=== PATIENT | female | born 1980 | race Caucasian/White ===

== ENCOUNTER 2020-03-09 20:13 | Emergency (ER) | payer OTHER, SELFPAY ==
[2020-03-09 20:18] VITALS: BP 164/74; PULSE 88; RESP 20; TEMP 36.6; O2SAT 98
--- NOTE | 2020-03-09 20:29 | ED_ITS ---
HPI - Allergic Reaction General Chief complaint: Allergic Reaction Stated complaint: hives all over Time Seen by Provider: 03/09/20 20:20 Source: patient Mode of arrival: Ambulatory Limitations: no limitations History of Present Illness HPI narrative: 39-year-old woman with medical history significant only for cold induced urticaria presents with approximately 15 hours of expanding urticaria. She initially noticed some hives around her throat and over the course of the day they have extended to cover most of her body including the palms of her hands and her scalp. She is not having any respiratory symptoms and does not feel that there is any fullness or swelling in her tongue or mouth. The only thing out of her ordinary routine was a stop at [employer] for a hamburger yesterday. She did try some Benadryl today but the reaction has progressed despite that. Related Data Home Medications Medication Instructions Recorded Confirmed cetirizine 10 mg PO QDAY #0 02/28/17 12/31/19 ascorbic acid (vitamin C) PO QDAY #0 09/24/17 12/31/19 biotin PO QDAY #0 09/24/17 12/31/19 Previous Rx's Medication Instructions Recorded fluticasone propionate 1 spray INTRANASAL BID #16 gm 02/28/17 prednisone 10 mg PO DAILY #5 tab 03/09/20 Allergies Allergy/AdvReac Type Severity Reaction Status Date / Time erythromycin base Allergy Intermediate hives Verified 12/31/19 11:41 [ERYTHROMYCIN BASE] sumatriptan [From IMITREX] Allergy Intermediate vomiting Verified 12/31/19 11:41 Review of Systems Review of Systems Narrative: Denies ? fever ? cough ? cold ? chills ? chest pain ? dyspnea ? orthopnea ? wheezing ? abdominal pain ? change to bowel or bladder habits ? nausea vomiting Patient History Medical History History of cold-induced urticaria (Acute) Morbid obesity with body mass index (BMI) greater than or equal to 50 (02/28/17) Surgical History History of tonsillectomy Status post appendectomy Family History Father Diabetes mellitus Hypertension High cholesterol Grandmother Age: 82 History of breast cancer Mother Age: 62 Obese Social History Smoking Status: Former smoker Smoking Status: Former smoker alcohol intake frequency: a few times a month Substance Use Type: marijuana Exam Narrative Exam Narrative: General: Healthy appearing, in no acute distress. Able to give a complete and coherent history. Well-nourished well-developed HEENT: Moist mucous membranes, normal sclera with reactive pupils, Neck: supple Respiratory: Lungs are clear to auscultation, no wheezing no rales no rhonchi. Full and symmetrical air movement Cardiac: Regular rate and rhythm no murmurs no bruits Abdomen: Soft nontender good bowel tones, no flank pain Skin: Warm and dry, urticaria worst around her upper chest and neck but extending across the upper extremities including hands and palms down her thighs and including feet and soles. No mucous membrane involvement. She does have h ariel extending into her hair/scalp Neurologic: Grossly neurologically intact with no obvious asymmetries or abnormalities Psych: Cooperative, appropriate insight and affect Initial Vital Signs Initial Vital Signs: Vital Signs Temperature 98 F 03/09/20 20:18 Pulse Rate 88 03/09/20 20:18 Respiratory Rate 20 03/09/20 20:18 Blood Pressure 164/74 H 03/09/20 20:18 Pulse Oximetry 98 03/09/20 20:18 Course Orders Ordered: Discontinued Medications Diphenhydramine HCl (Benadryl) 25 mg IV NOW ONE Stop: 03/09/20 20:29 Last Admin: 03/09/20 20:38 Dose: 25 mg Documented by: MINAL Famotidine (Pepcid) 20 mg in 50 mls @ 200 mls/hr IV NOW ONE Stop: 03/09/20 20:42 Last Infusion: 03/09/20 21:00 Dose: 0 mls/hr Documented by: Admin: 03/09/20 20:38 Dose: 200 mls/hr Documented by: MINAL Methylprednisolone (Solu-Medrol 125 Mg Vial) 125 mg IV NOW ONE Stop: 03/09/20 20:29 Last Admin: 03/09/20 20:38 Dose: 125 mg Documented by: MINAL Vital Signs Vital signs: Vital Signs - 8 hr 03/09/20 20:18 Temperature 98 F Pulse Rate 88 Respiratory Rate 20 Blood Pressure 164/74 H Pulse Oximetry 98 MDM - Allergic Reaction MDM Narrative Medical decision making narrative: Awoke this morning with some minor itching and through the day progressive urticaria involving only her skin with no respiratory concerns. No known inciting etiology. No new foods, medications, other ingested material of any kind that would cause such a full body reaction. 920 pm significantly improved but still has some hives noticeable. Safe for ho me discharge Discharge Plan Departure Patient Disposition: Home Clinical Impression: Allergic reaction Qualifiers: Encounter type: initial encounter Qualified Code(s): T78.40XA - Allergy, unspecified, initial encounter Instructions: DI for Anaphylaxis Activity Restrictions/Additional Instructions: Thank you for coming in today. I am glad you are feeling better. You clearly have had an impressive reaction to something that went into your body (this is not a reaction to a topical something like a lotion or perfume). I am very pleased that this is not causing any wheezing, chest tightness or shortness of breath. In the emergency room you are given IV steroids, IV Benadryl and IV Pepcid. I am going to suggest that over the next week you continue Zyrtec every day and if you are having continued itching or symptoms at night you can add Benadryl. I am going to give you a brief course of steroids to begin tomorrow, if you notice that you have symptoms returning 4-5 days after stopping the steroid please do not be overly alarmed, sometimes this is the steroids wearing off and the tail and of your body's reaction. The prescription has been electronically transmitted to [facility] in [place] for you If you have worsening symptoms. You develop any shortness of breath, chest tightness, a sense of swelling in your tongue or throat please return to the emergency department immediately. I would encourage you to think about everything that when into your body in the 24 hours prior to this reaction to see if you can figure out what may have caused this. It is not unusual to never figured out. I wish you the best Prescriptions: New prednisone 10 mg tablet 10 mg PO DAILY Qty: 5 RF: 0 No Action cetirizine 10 MG tablet 10 mg PO QDAY Qty: 0 RF: 0 fluticasone propionate 16 GM spray,suspension 1 spray Intranasal BID Qty: 16 RF: 0 biotin 1 mg Capsule PO QDAY Qty: 0 RF: 0 ascorbic acid (vitamin C) 500 mg Tablet PO QDAY Qty: 0 RF: 0 Referrals: Cecilia Gaaln DO [Primary Care Provider] -
[2020-03-09] MEDS: FAMOTIDINE 20 MG/50 ML PIGGYBACK 200 MG IV (20:38)
[2020-03-09] MEDS: diphenhydrAMINE 50 MG/ML VIAL 25 MG IV (20:38)
[2020-03-09] MEDS: methylPREDNISolone 125 MG/2 ML VIAL IV (20:38)
[2020-03-09 21:35] VITALS: BP 154/90; PULSE 76; RESP 16; O2SAT 97
== END 2020-03-09 21:35 | disposition home or self-care (01) ==
PROVIDERS: Emergency Provider Emergency Medicine; PCP Family Medicine
DX: T78.40XA Allergy, unspecified, initial encounter (principal)
CPT/HCPCS: 96365; 96375; 99283; 99284; J1200; J2930

== ENCOUNTER 2021-02-24 13:38 | Emergency (ER) | payer OTHER, SELFPAY ==
[2021-02-24] VITALS (10 sets, daily range): BP systolic 131–185; BP diastolic 68–84; PULSE 85–114; RESP 14–50; TEMP 36.9; O2SAT 96–99; BMI 59.5
--- NOTE | 2021-02-24 14:00 | ED_ITS ---
HPI - Neuro Symptoms/Deficit General Chief Complaint: Neuro Symptoms/Deficit Stated Complaint: woke up feeling weird, can't talk Time Seen by Provider: 02/24/21 13:40 Source: patient Mode of arrival: Wheelchair Limitations: no limitations History of Present Illness HPI Narrative: 40-year-old female former smoker with history of state doses presents with chief complaint of waking up, feeling ?weird? with a stuttering speech pattern and vague pain. She states she went to bed in her normal state of health, denies any recent injury, fever, vomiting or urinary complaints. She has never had anything such as this but has had migraine headaches before. She states that it is not so much pain as just feeling weird in her head, she has admittedly quite anxious and does not normally have any speech issues. She den ies any blurred vision chest pain or shortness of breath. She denies any neck pain. She denies any change in medications or diet. She has had no numbness, tingling or weakness Timing confirmed by: spouse Location: speech On Anticoagulants: No Related Data Home Medications Medication Instructions Recorded Confirmed cetirizine 10 mg PO QDAY #0 02/28/17 12/04/20 ascorbic acid (vitamin C) PO QDAY #0 09/24/17 12/04/20 biotin PO QDAY #0 09/24/17 12/04/20 Previous Rx's Medication Instructions Recorded fluticasone propionate 1 spray INTRANASAL BID #16 gm 02/28/17 prednisone 10 mg PO DAILY #5 tab 03/09/20 Allergies Allergy/AdvReac Type Severity Reaction Status Date / Time erythromycin base Allergy Intermediate hives Verified 02/24/21 13:49 [ERYTHROMYCIN BASE] sumatriptan [From IMITREX] Allergy Intermediate vomiting Verified 02/24/21 13:49 Review of Systems Constitutional Constitutional: Denies chills, Denies fatigue, Denies fever(s), Denies frequent falls, Denies lethargy and Denies weakness Eyes Eyes: Denies change in vision, Denies eye discharge, Denies irritation and Denies loss of vision ENT Ears, Nose, Mouth, and Throat: Denies change in voice, Denies dizziness, Denies neck pain, Denies sore throat and Denies throat swelling Cardiovascular Cardiovascular: Denies chest pain, Denies irregular heart rhythm, Denies lightheadedness, Denies palpitations, Denies dyspnea, Denies dyspnea on exertion and Denies orthopnea Respiratory Respiratory: Denies cough, Denies dyspnea, Denies dyspnea on exertion and Denies wheezing Gastrointestinal Gastrointestinal: Denies abdominal pain, Denies change in bowel habits, Denies diarrhea, Denies nausea and Denies vomiting Musculoskeletal Musculoskeletal: Denies neck pain and Denies numbness Integumentary/Breasts Skin/Breast: Denies pruritus, Denies erythema, Denies rash and Denies wounds Neurologic Neurologic: Denies behavioral changes, Denies confusion, Denies dizziness, Denies frequent falls, Denies loss of vision, Denies numbness and Denies weakness Psychiatric Psychiatric: Denies anxiety, Denies behavioral changes, Denies confusion, Denies depression, Denies homicidal ideation and Denies suicidal ideation Endocrine Endocrine: Denies fatigue, Denies flushing and Denies palpitations Hematologic/Lymphatic Hematologic/Lymphatic: Denies easy bruising On Anticoagulants: No Allergic/Immunologic Allergic/Immunologic: Denies urticaria, Denies throat swelling and Denies wheezing Patient History Medical History (Updated 02/24/21 @ 15:33 by Nikolay Singh DO) History of cold-induced urticaria Morbid obesity with body mass index (BMI) greater than or equal to 50 (02/28/17) Surgical History History of tonsillectomy Status post appendectomy Family History Father Diabetes mellitus Hypertension High cholesterol Grandmother Age: 83 History of breast cancer Mother Age: 63 Obese Social History Smoking Status: Former smoker Smoking Status: Former smoker alcohol intake frequency: a few times a month Substance Use Type: marijuana Exam Narrative Exam Narrative: GENERAL: [32] year old patient appears stated age. Well- nourished, well-developed patient, in obvious distress, tearful, crying, anxious, stuttering words HEAD: Atraumatic. Normocephalic. EYES: Pupils equal round and reactive. Extraocular motions intact. No scleral icterus. No injection or drainage. ENT: Nose without bleeding, purulent drainage. Throat without erythema, tonsillar hypertrophy or exudate. Airway patent. NECK: Trachea midline. Non tender, no meningeal signs, negative Brudzinski's, negative Kernig's. CARDIOVASCULAR: Regular rate and rhythm without murmurs, gallops, or rubs. RESPIRATORY: Clear to auscultation. Breath sounds equal bilaterally. No wheezes, rales, or rhonchi. GASTROINTESTINAL: Abdomen soft, non-tender, nondistended. EXTREMITIES: No edema or joint tenderness. BACK: Nontender without deformity or crepitance. No flank tenderness. NEURO: AOx3. SKIN: No rash or erythema of visible areas NIH Stroke Scale 1a. LOC: Patient is alert and keenly responsive (0) 1b. LOC Questions: Patient answers both LOC questions accurately (0) 1c. LOC Commands: Patient performs both tasks correctly (0) 2. Best Gaze: Normal (0) 3. Visual: No visual loss (0) 4. Facial palsy: Normal symmetrical movements (0) 5. Motor arm: No drift (0) 6. Motor leg: No drift (0) 7. Limb ataxia: Absent (0) 8. Sensory: Normal (0) 9. Best language: No aphasia; normal (0) 10. Dysarthria: Normal (0) 11. Extinction and inattention: No abnormality (0) NIHSS: 0 Initial Vital Signs Initial Vital Signs: Vital Signs Temperature 98.4 F 02/24/21 13:49 Pulse Rate 114 H 02/24/21 13:49 Respiratory Rate 30 H 02/24/21 13:49 Blood Pressure 185/84 H 02/24/21 13:49 Pulse Oximetry 99 02/24/21 13:49 Course Orders Ordered: ED Orders 02/24/21 13:56 EKG-12 Lead Stat 02/24/21 14:04 CT head/brain wo con Stat 02/24/21 14:37 CT angio head and neck Stat 02/24/21 14:38 Complete Blood Count AUTO DIFF Stat Comprehensive Metabolic Panel Stat Sodium Chloride (Normal Saline 0.9%) 1,000 mls @ 125 mls/hr IV CONT CEE Last Admin: 02/24/21 14:31 Dose: 125 mls/hr Documented by: CSIEDLE Discontinued Medications Dexamethasone (Dexamethasone 10 Mg/Ml Vial) 10 mg IV NOW ONE Stop: 02/24/21 14:38 Last Admin: 02/24/21 14:54 Dose: 10 mg Documented by: VIOLET Diphenhydramine HCl (Diphenhydramine 50 Mg/Ml Vial) 25 mg IV NOW ONE Stop: 02/24/21 14:38 Last Admin: 02/24/21 14:54 Dose: 25 mg Documented by: VIOLET Ketorolac Tromethamine (Ketorolac 60 Mg/2 Ml Vial) 15 mg IV NOW ONE Stop: 02/24/21 14:38 Last Admin: 02/24/21 14:54 Dose: 15 mg Documented by: VIOLET Metoclopramide HCl (Metoclopramide 10 Mg/2 Ml Inj) 10 mg IV NOW ONE Stop: 02/24/21 14:38 Last Admin: 02/24/21 14:54 Dose: 10 mg Documented by: VIOLET Reevaluation(s) Reevaluation #1: Patient has a near complete resolution of her symptoms including pain, stuttering of speech and is visibly much calmer after the above- stated therapies. Completed an IH upon resolution of her pain and subsequent resolution of stuttering Vital Signs Vital signs: Vital Signs - 8 hr 02/24/21 13:49 02/24/21 14:00 02/24/21 14:02 Temperature 98.4 F Pulse Rate 114 H 114 H 110 H Respiratory Rate 30 H 44 H 28 H Blood Pressure 185/84 H 159/83 H Pulse Oximetry 99 99 99 02/24/21 14:12 02/24/21 14:30 02/24/21 14:47 Temperature Pulse Rate 108 H 101 H 102 H Respiratory Rate 36 H 50 H Blood Pressure 160/77 H 146/79 H Pulse Oximetry 96 98 98 02/24/21 15:00 02/24/21 15:13 Temperature Pulse Rate 92 H 96 H Respiratory Rate 18 17 Blood Pressure 138/68 Pulse Oximetry 96 99 MDM - Neuro Symptoms/Deficit Lab Data Result diagrams: 02/24/21 14:38 02/24/21 14:38 Labs: Lab Results 02/24/21 02/24/21 Range/Units 14:38 14:38 WBC 9.9 (4.5-11.0) X10^3/uL RBC 4.83 (4.0-5.2) X10^6/uL Hgb 13.5 (12.0-16.0) g/dL Hct 41.3 (36-46) % MCV 85.5 (80-100) fL MCH 28.0 (26-34) PG MCHC 32.8 (30-36) % RDW 13.8 (11.6-14.8) % Plt Count 247 (150-400) X10^3/uL Neut % (Auto) 64.8 (50-75) % Lymph % (Auto) 27.2 (25-40) % [place] % (Auto) 5.3 (3-14) % Eos % (Auto) 1.7 L (2-4) % Baso % (Auto) 1.0 (0-2) % Neut # (Auto) 6400 (4595-5672) /uL Lymph # (Auto) 2700 (4633-7514) /uL [place] # (Auto) 500 (0-900) /uL Eos # (Auto) 200 (0-450) /uL Baso # (Auto) 100 (0-100) /uL Sodium 139 (137-145) mmol/L Potassium 4.3 (3.4-5.1) mmol/L Chloride 103 (98-107) mmol/L Carbon Dioxide 28 (22-32) mmol/L BUN 15 (7-17) mg/dL Creatinine 0.57 (0.52-1.04) mg/dL Estimated GFR > 60.0 (>60) mL/min BUN/Creatinine Ratio 26.3 H (6-22) Glucose 128 H (70-100) mg/dL Calcium 9.2 (8.4-10.2) mg/dL Total Bilirubin 0.2 (0.2-1.3) mg/dL AST 37 H (14-36) IU/L ALT 50 H (<35) IU/L Alkaline Phosphatase 92 (38-126) U/L Total Protein 7.6 (6.3-8.2) g/dL Albumin 4.1 (3.5-5.0) g/dL Globulin 3.5 (1.7-4.1) g/dL Albumin/Globulin Ratio 1.2 (1.0-2.8) Imaging Data CT scan - head: Radiologist's Impression: [address] [id number] Scan ReportSigned Patient: Tram Carter [facility]#: [id number]: 1980Acct:[id number]/Sex: 40 / FDate of Service: 02/24/21Loc: EDAccession Number: [id number] Procedure: CT head/brain wo con Ordering Provider: Nikolay Singh D.O. PROCEDURE: CT HEAD/BRAIN WO CON INDICATIONS: headache, speech trouble, unsteady TECHNIQUE: Noncontrast 4.5 mm thick angled axial sections acquired from the foramen magnum to the vertex, with coronal and sagittal reformats. For radiation dose reduction, the following was used: automated exposure control, adjustment of mA and/or kV according to patient size. COMPARISON: None. FINDINGS: Image quality: Excellent. CSF spaces: Basal cisterns are patent. No extra-axial fluid collections. Ventricles are normal in size and shape. Brain: No midline shift. No intracranial masses or hemorrhage. Jimenez-white matter interface is normal. Skull and face: Calvarium and visualized facial bones are intact, without suspicious lesions. Sinuses: Visualized sinuses and mastoids are clear. IMPRESSION: No acute intracranial abnormality. Dictated by: Yinka Ugarte M.D. on 02/24/2021 at 14:21 Approved by: Yinka Ugarte M.D. on 02/24/2021 at 14:22 CTA Head/Neck: Radiologist's Impression: [address] Scan ReportSigned Patient: Tram Carter MMR#: [id number]: 1980Acct:[id number]/Sex: 40 / FDate of Service: 02/24/21Loc: E DAccession Number: [id number] Procedure: CT angio head and neck Ordering Provider: Nikolay Singh D.O. PROCEDURE: CT ANGIO HEAD AND NECK INDICATIONS: severe head pain, balance trouble, speech trouble TECHNIQUE: After the administration of intravenous contrast, 1 mm thick sections acquired from the aortic arch through the [place] of [place]. Post-contrast 4.5 mm thick sections then re-acquired from the foramen magnum to the vertex. 3-dimensional uredniz-algzrfpzd-zjvmyojvuw (MIP) and/or volume rendering reformats were acquired of the central intracranial vasculature and neck separately. COMPARISON: [facility], CT, CT HEAD/BRAIN WO CON, 02/24/2021, 14:01. FINDINGS: Image quality: Degraded by patient body habitus. BRAIN: CSF spaces: Ventricles are normal in size and shape. Basal cisterns are patent. No extra-axial fluid collections. Brain: No midline shift. No intracranial bleeds or masses. Jimenez-white matter interface appears intact. Skull and face: Calvarium and facial bones appear intact, without suspicious lesions. Orbits appear normal. Sinuses: Sinuses and mastoids are clear. HEAD CT ANGIOGRAPHY: Anterior circulation: Intracranial internal carotid arteries are normal in size and flow. The flow within the paired anterior cerebral arteries is normal and symmetric. The flow within the middle cerebral arteries is normal and symmetric. The anterior communicating artery is seen. No aneurysms are seen. Posterior circulation: Visualized portions of the vertebral arteries demonstrate normal caliber, and join to form a normal appearing basilar artery. Flow within the posterior cerebral arteries is normal and symmetric. No aneurysms are seen. Dural sinuses demonstrate normal postcontrast enhancement. NECK CT ANGIOGRAPHY: Carotid system: The great vessels demonstrate a conventional anatomy as they arise from the aortic arch. The origins of the common carotid arteries appear patent. The common carotid arteries demonstrate normal caliber. Common carotid arteries and proximal internal carotid arteries follow medial course project into the retropharyngeal space. Origins of the internal carotid arteries are fully patent. Posterior circulation: The origins of the vertebral arteries not well visualized due to patient body habitus and cannot be evaluated. Cervical segments of the vert ebral arteries suboptimally visualized due to patient body habitus. Cervical segments of the vertebral arteries appear grossly patent. The more superior extracranial portions of both vertebral arteries also demonstrate normal courses and calibers. They join to form a normal appearing basilar artery. Soft tissues: Visualized neck soft tissues demonstrate no suspicious abnormalities. Bones: No suspicious bony lesions. Visualized cervical spine appears normally aligned. IMPRESSION: 1. Image quality limited by patient body habitus. 2. No acute intracranial disease process. 3. No large vessel occlusion, vascular stenosis, vascular dissection or aneurysm within limitations of the study. Any quantitative measurements of stenosis were performed using NASCET criteria. Dictated by: Steff Madrid MD, PhD on 02/24/2021 at 15:34 Approved by: Steff Madrid MD, PhD on 02/24/2021 at 15:43 MDM Narrative Medical decision making narrative: Headache considerations include, but not limited to: Subarachnoid hemorrhage, but unlikely as patient denies sudden onset of pain, not worst of life, or neck pain Meningitis considered, but thought unlikely given lack of Brudzinski's, Kernig's sign, altered mental status or fever Giant cell arteritis considered, but thought unlikely given lack of unilateral findings, pain in jewish, vision change HTN Emergency considered, but thought unlikely given normal vitals Most likely cause given normal labs and imaging as well as response to me dications would be atypical migraine and associated anxiety response Other serious diagnoses considered unlikely given lack of red flag findings such as sudden onset, increasing frequency, immunocompromise, systemic signs (fever, chills, stiff neck, or rash), focal neurologic findings, trauma, blood thinners, etc. Discharge Plan Departure Patient Disposition: Home Clinical Impression: Atypical migraine Instructions: Migraine -- Adult Activity Restrictions/Additional Instructions: *You have been diagnosed with [ Headache with neurologic symptoms, likely an atypical migraine] *What to do: *Take medications as directed *Follow up with your primary care provider in 2-3 days, call for an appointment. Let them know you were seen in the Emergency Department and that we ask that you be seen in follow up *Return to ER if you should have any new, worsening or concerning symptoms, such as [ fever > 101F, neck pain or stiffness, vomiting, confusion, seizure, focal weakness, vision change, speech deficit or other concerning symptoms ] Prescriptions: No Action cetirizine 10 MG tablet 10 mg PO QDAY Qty: 0 RF: 0 fluticasone propionate 16 GM spray,suspension 1 spray Intranasal BID Qty: 16 RF: 0 biotin 1 mg Capsule PO QDAY Qty: 0 RF: 0 ascorbic acid (vitamin C) 500 mg Tablet PO QDAY Qty: 0 RF: 0 prednisone 10 mg tablet 10 mg PO DAILY Qty: 5 RF: 0 Referrals: Cecilia Galan DO [Primary Care Provider] -
--- NOTE | 2021-02-24 14:04 | DI.CT.S_ITS ---
PROCEDURE: CT HEAD/BRAIN WO CON INDICATIONS: headache, speech trouble, unsteady TECHNIQUE: Noncontrast 4.5 mm thick angled axial sections acquired from the foramen magnum to the vertex, with coronal and sagittal reformats. For radiation dose reduction, the following was used: automated exposure control, adjustment of mA and/or kV according to patient size. COMPARISON: None. FINDINGS: Image quality: Excellent. CSF spaces: Basal cisterns are patent. No extra-axial fluid collections. Ventricles are normal in size and shape. Brain: No midline shift. No intracranial masses or hemorrhage. Jimenez-white matter interface is normal. Skull and face: Calvarium and visualized facial bones are intact, without suspicious lesions. Sinuses: Visualized sinuses and mastoids are clear. IMPRESSION: No acute intracranial abnormality. Dictated by: Yinka Ugarte M.D. on 02/24/2021 at 14:21 Approved by: Yinka Ugarte M.D. on 02/24/2021 at 14:22
[2021-02-24] MEDS: SODIUM CHLORIDE 0.9% 1,000 ML 125 ML IV (14:31)
--- NOTE | 2021-02-24 14:37 | DI.CT.S_ITS ---
PROCEDURE: CT ANGIO HEAD AND NECK INDICATIONS: severe head pain, balance trouble, speech trouble TECHNIQUE: After the administration of intravenous contrast, 1 mm thick sections acquired from the aortic arch through the [place] of [place]. Post-contrast 4.5 mm thick sections then re-acquired from the foramen magnum to the vertex. 3-dimensional wtvjepw-[id number] (MIP) and/or volume rendering reformats were acquired of the central intracranial vasculature and neck separately. COMPARISON: [facility], CT, CT HEAD/BRAIN WO CON, 02/24/2021, 14:01. FINDINGS: Image quality: Degraded by patient body habitus. BRAIN: CSF spaces: Ventricles are normal in size and shape. Basal cisterns are patent. No extra-axial fluid collections. Brain: No midline shift. No intracranial bleeds or masses. [place]-white matter interface appears intact. Skull and face: Calvarium and facial bones appear intact, without suspicious lesions. Orbits appear normal. Sinuses: Sinuses and mastoids are clear. HEAD CT ANGIOGRAPHY: Anterior circulation: Intracranial internal carotid arteries are normal in size and flow. The flow within the paired anterior cerebral arteries is normal and symmetric. The flow within the middle cerebral arteries is normal and symmetric. The anterior communicating artery is seen. No aneurysms are seen. Posterior circulation: Visualized portions of the vertebral arteries demonstrate normal caliber, and join to form a normal appearing basilar artery. Flow within the posterior cerebral arteries is normal and symmetric. No aneurysms are seen. Dural sinuses demonstrate normal postcontrast enhancement. NECK CT ANGIOGRAPHY: Carotid system: The great vessels demonstrate a conventional anatomy as they arise from the aortic arch. The origins of the common carotid arteries appear patent. The common carotid arteries demonstrate normal caliber. Common carotid arteries and proximal internal carotid arteries follow medial course project into the retropharyngeal space. Origins of the internal carotid arteries are fully patent. Posterior circulation: The origins of the vertebral arteries not well visualized due to patient body habitus and cannot be evaluated. Cervical segments of the vertebral arteries suboptimally visualized due to patient body habitus. Cervical segments of the vertebral arteries appear grossly patent. The more superior extracranial portions of both vertebral arteries also demonstrate normal courses and calibers. They join to form a normal appearing basilar artery. Soft tissues: Visualized neck soft tissues demonstrate no suspicious abnormalities. Bones: No suspicious bony lesions. Visualized cervical spine appears normally aligned. IMPRESSION: 1. Image quality limited by patient body habitus. 2. No acute intracranial disease process. 3. No large vessel occlusion, vascular stenosis, vascular dissection or aneurysm within limitations of the study. Any quantitative measurements of stenosis were performed using NASCET criteria. Dictated by: Steff Madrid MD, PhD on 02/24/2021 at 15:34 Approved by: Steff Madrid MD, PhD on 02/24/2021 at 15:43
[2021-02-24] MEDS: diphenhydrAMINE 50 MG/ML VIAL 25 MG IV (14:54)
[2021-02-24] MEDS: DEXAMETHASONE 10 MG/ML VIAL IV (14:54)
[2021-02-24] MEDS: KETOROLAC 60 MG/2 ML VIAL 15 MG IV (14:54)
[2021-02-24] MEDS: METOCLOPRAMIDE 10 MG/2 ML INJ IV (14:54)
[2021-02-24 14:56] LABS: Add Manual Diff / Slide Review NO; Basophils Absolute Auto 100 /uL (0-100); Eosinophils Absolute Auto 200 /uL (0-450); Eosinophils Percent Auto 1.7 % (2-4); Hematocrit 41.3 % (36-46); Hemoglobin 13.5 g/dL (12.0-16.0); Lymphocytes Absolute Auto 2700 /uL (1100-4500); Lymphocytes Percent Auto 27.2 % (25-40); Mean Corpuscular HGB Conc 32.8 % (30-36); Mean Corpuscular Volume 85.5 fL (80-100); Monocytes Absolute Auto 500 /uL (0-900); Monocytes Percent Auto 5.3 % (3-14); Neutrophils Absolute Auto 6400 /uL (1500-7000); Neutrophils Percent Auto 64.8 % (50-75); Platelet Count 247 X10^3/uL (150-400); Red Blood Cell Count 4.83 X10^6/uL (4.0-5.2); Red Cell Distribution Width 13.8 % (11.6-14.8); White Blood Cell Count 9.9 X10^3/uL (4.5-11.0)
[2021-02-24 15:29] LABS: Alanine Aminotransferase 50 IU/L (<35); Albumin 4.1 g/dL (3.5-5.0); Albumin Globulin Ratio 1.2 (1.0-2.8); Alkaline Phosphatase 92 U/L (38-126); Aspartate Aminotransferase 37 IU/L (14-36); BUN Creatinine Ratio 26.3 (6-22); Bilirubin Total 0.2 mg/dL (0.2-1.3); Blood Urea Nitrogen 15 mg/dL (7-17); Calcium 9.2 mg/dL (8.4-10.2); Carbon Dioxide 28 mmol/L (22-32); Chloride 103 mmol/L (98-107); Estimated Glomerular Filt Rate > 60.0 mL/min (>60); Globulin 3.5 g/dL (1.7-4.1); Glucose 128 mg/dL (70-100); HEMOLYSIS 19 (0-50); Potassium 4.3 mmol/L (3.4-5.1); Sodium 139 mmol/L (137-145); Total Protein 7.6 g/dL (6.3-8.2)
--- NOTE | 2021-02-24 15:30 | PC.NURSE ---
post medication administration, resolution of sx. pt with clear speech and states her headache pain is resolved.
--- NOTE | 2021-03-10 16:03 | PC.NURSE ---
late entry, IV stop time for NS @125 ml/hr stopped at 1612
== END 2021-02-24 16:12 | disposition home or self-care (01) ==
PROVIDERS: Emergency Provider Emergency Medicine; PCP Family Medicine
DX: G43.809 Other migraine, not intractable, without status migrainosus (principal); R47.9 Unspecified speech disturbances
CPT/HCPCS: 36415; 70450; 70496; 70498; 80053; 85025; 96361; 96374; 96375; 99284; J1100; J1200; J1885; J2765

== ENCOUNTER 2021-03-25 12:50 | Emergency (ER) | payer OTHER, SELFPAY ==
[2021-03-25 12:52] VITALS: BP 177/86; PULSE 96; RESP 14; TEMP 36.2; O2SAT 99
--- NOTE | 2021-03-25 13:00 | DI.RAD.S_ITS ---
PROCEDURE: XR CHEST 1V INDICATIONS: palpitations TECHNIQUE: 2 frontal views of the chest were performed. COMPARISON: [facility], , CHEST 2 VIEW, 10/23/2007, 21:39. FINDINGS: Surgical changes and devices: Overlying EKG wires. Lungs and pleura: Lungs are clear. No pleural effusions or pneumothorax. Mediastinum: Mediastinal contours appear normal. Heart size is normal. Bones and chest wall: No suspicious bony lesions. Overlying soft tissues appear unremarkable. IMPRESSION: No evidence of an acute cardiopulmonary abnormality. Dictated by: Marcial Karimi D.O. on 03/25/2021 at 12:26 Approved by: Marcial Karimi D.O. on 03/25/2021 at 12:30
[2021-03-25 13:03] VITALS: PULSE 82; RESP 13; O2SAT 99
[2021-03-25 13:30] VITALS: PULSE 83; RESP 14; O2SAT 98
[2021-03-25 13:48] LABS: Pregnancy Test Serum,Qual Negative (Negative)
[2021-03-25 13:49] LABS: Alanine Aminotransferase 50 IU/L (<35); Albumin 4.3 g/dL (3.5-5.0); Albumin Globulin Ratio 1.2 (1.0-2.8); Alkaline Phosphatase 101 U/L (38-126); Aspartate Aminotransferase 40 IU/L (14-36); BUN Creatinine Ratio 35.7 (6-22); Bilirubin Total 0.3 mg/dL (0.2-1.3); Blood Urea Nitrogen 15 mg/dL (7-17); Calcium 9.5 mg/dL (8.4-10.2); Carbon Dioxide 22 mmol/L (22-32); Chloride 105 mmol/L (98-107); Creatine Kinase 71 U/L (30-135); Estimated Glomerular Filt Rate > 60.0 mL/min (>60); Globulin 3.7 g/dL (1.7-4.1); Glucose 114 mg/dL (70-100); HEMOLYSIS 40 (0-50); Magnesium 1.7 mg/dL (1.6-2.3); Potassium 4.1 mmol/L (3.4-5.1); Sodium 137 mmol/L (137-145)
[2021-03-25 13:50] LABS: Prothrombin Time 10.5 SECONDS (10.1-12.7)
[2021-03-25 13:53] LABS: PTT Partial Thromboplastin Tim 24 SECONDS (26.4-36.2)
[2021-03-25 13:59] LABS: Add Manual Diff / Slide Review NO; Basophils Absolute Auto 100 /uL (0-100); Basophils Percent Auto 0.7 % (0-2); Eosinophils Absolute Auto 100 /uL (0-450); Eosinophils Percent Auto 1.3 % (2-4); Hematocrit 40.6 % (36-46); Hemoglobin 13.6 g/dL (12.0-16.0); Lymphocytes Absolute Auto 1900 /uL (1100-4500); Mean Corpuscular HGB Conc 33.6 % (30-36); Mean Corpuscular Hemoglobin 28.3 PG (26-34); Mean Corpuscular Volume 84.1 fL (80-100); Monocytes Absolute Auto 400 /uL (0-900); Monocytes Percent Auto 5.5 % (3-14); Neutrophils Absolute Auto 5300 /uL (1500-7000); Neutrophils Percent Auto 68.5 % (50-75); Platelet Count 262 X10^3/uL (150-400); Red Blood Cell Count 4.82 X10^6/uL (4.0-5.2); Red Cell Distribution Width 14.2 % (11.6-14.8); White Blood Cell Count 7.7 X10^3/uL (4.5-11.0)
[2021-03-25 14:00] VITALS: PULSE 84; RESP 23; O2SAT 96
[2021-03-25 14:00] LABS: Troponin I < 0.012 ng/mL (0.01-0.034)
[2021-03-25 14:21] LABS: Thyroid Stimulating Hormone 2.81 uIU/mL (0.47-4.68)
--- NOTE | 2021-03-25 14:29 | ED_ITS ---
HPI - Arrhythmia/Palpitations General Chief Complaint: Arrhythmia/Palpitations Stated Complaint: Heart Feels Like Its Beating Weird Time Seen by Provider: 03/25/21 14:09 Source: patient Mode of arrival: Ambulatory Limitations: no limitations History of Present Illness HPI narrative: 40-year-old female former smoker presents with significant other and a chief complaint of 2 hours of palpitations and heart pounding prior to her arrival, symptoms had resolved prior to her arrival as well. Patient denies dizziness, weakness or lightheadedness. She has had no fever, chills or difficulty breathing. She denies any dietary or medication change. She denies recent travel, history of blood clot. She is otherwise well and free of complaint Related Data Home Medications Medication Instructions Recorded Confirmed cetirizine 10 mg PO QDAY #0 02/28/17 03/25/21 Allergies Allergy/AdvReac Type Severity Reaction Status Date / Time erythromycin base Allergy Intermediate hives Verified 03/25/21 13:06 [ERYTHROMYCIN BASE] sumatriptan [From IMITREX] Allergy Intermediate vomiting Verified 03/25/21 13:06 Review of Systems Constitutional Constitutional: Denies chills, Denies fatigue, Denies fever(s), Denies frequent falls, Denies lethargy and Denies weakness Eyes Eyes: Denies change in vision, Denies eye discharge, Denies irritation and Denies loss of vision ENT Ears, Nose, Mouth, and Throat: Denies change in voice, Denies dizziness, Denies neck pain, Denies sore throat and Denies throat swelling Cardiovascular Cardiovascular: Denies chest pain, Reports irregular heart rhythm, Denies lightheadedness, Reports palpitations, Denies dyspnea, Denies dyspnea on exertion and Denies orthopnea Respiratory Respiratory: Denies cough, Denies dyspnea, Denies dyspnea on exertion and Denies wheezing Gastrointestinal Gastrointestinal: Denies abdominal pain, Denies change in bowel habits, Denies diarrhea, Denies nausea and Denies vomiting Musculoskeletal Musculoskeletal: Denies neck pain and Denies numbness Integumentary/Breasts Skin/Breast: Denies pruritus, Denies erythema, Denies rash and Denies wounds Neurologic Neurologic: Denies behavioral changes, Denies confusion, Denies dizziness, Denies frequent falls, Denies loss of vision, Denies numbness and Denies weakness Psychiatric Psychiatric: Denies anxiety, Denies behavioral changes, Denies confusion, Denies depression, Denies homicidal ideation and Denies suicidal ideation Endocrine Endocrine: Denies fatigue, Denies flushing and Reports palpitations Hematologic/Lymphatic Hematologic/Lymphatic: Denies easy bruising Allergic/Immunologic Allergic/Immunologic: Denies urticaria, Denies throat swelling and Denies wheezing Patient History Medical History History of cold-induced urticaria Morbid obesity with body mass index (BMI) greater than or equal to 50 (02/28/17) Surgical History History of tonsillectomy Status post appendectomy Family History Father Diabetes mellitus Hypertension High cholesterol Grandmother Age: 83 History of breast cancer Mother Age: 63 Obese Social History Smoking Status: Former smoker Smoking Status: Former smoker alcohol intake frequency: a few times a month Substance Use Type: marijuana Exam Narrative Exam Narrative: GENERAL: [40] year old patient appears stated age. Well- nourished, well-developed patient, in mild distress. HEAD: Atraumatic. Normocephalic. EYES: Pupils equal round and reactive. Extraocular motions intact. No scleral icterus. No injection or drainage. ENT: Nose without bleeding, purulent drainage. Throat without erythema, tonsillar hypertrophy or exudate. Airway patent. NECK: Trachea midline. Non tender CARDIOVASCULAR: Regular rate and rhythm without murmurs, gallops, or rubs. RESPIRATORY: Clear to auscultation. Breath sounds equal bilaterally. No wheezes, rales, or rhonchi. GASTROINTESTINAL: Abdomen soft, non-tender, nondistended. EXTREMITIES: No edema or joint tenderness. BACK: Nontender without deformity or crepitance. No flank tenderness. NEURO: AOx3. SKIN: No rash or erythema of visible areas Initial Vital Signs Initial Vital Signs: Vital Signs Temperature 97.1 F L 03/25/21 12:52 Pulse Rate 96 H 03/25/21 12:52 Respiratory Rate 14 03/25/21 12:52 Blood Pressure 177/86 H 03/25/21 12:52 Pulse Oximetry 99 03/25/21 12:52 Course Orders Ordered: ED Orders 03/25/21 13:00 XR chest 1V Stat EKG-12 Lead Stat 03/25/21 13:30 Complete Blood Count AUTO DIFF Stat Comprehensive Metabolic Panel Stat Magnesium Stat Partial Thromboplastin Time Stat Test Serum,Qual Stat Prothrombin Time INR Stat Thyroid Stimulating Hormone Stat Troponin & CK Cardiac Panel Stat Vital Signs Vital signs: Vital Signs - 8 hr 03/25/21 12:52 Temperature 97.1 F L Pulse Rate 96 H Respiratory Rate 14 Blood Pressure 177/86 H Pulse Oximetry 99 MDM - Arrhythmia/Palpitations Lab Data Result diagrams: 03/25/21 13:30 03/25/21 13:30 Labs: Lab Results 03/25/21 03/25/21 03/25/21 Range/Units 13:30 13:30 13:30 WBC 7.7 (4.5-11.0) X10^3/uL RBC 4.82 (4.0-5.2) X10^6/uL Hgb 13.6 (12.0-16.0) g/dL Hct 40.6 (36-46) % MCV 84.1 (80-100) fL MCH 28.3 (26-34) PG MCHC 33.6 (30-36) % RDW 14.2 (11.6-14.8) % Plt Count 262 (150-400) X10^3/uL Neut % (Auto) 68.5 (50-75) % Lymph % (Auto) 24.0 L (25-40) % [place] % (Auto) 5.5 (3-14) % Eos % (Auto) 1.3 L (2-4) % Baso % (Auto) 0.7 (0-2) % Neut # (Auto) 5300 (3117-2722) /uL Lymph # (Auto) 1900 (6423-1861) /uL [place] # (Auto) 400 (0-900) /uL Eos # (Auto) 100 (0-450) /uL Baso # (Auto) 100 (0-100) /uL PT 10.5 (10.1-12.7) SECONDS INR 1.0 (0.9-1.3) APTT 24 L (26.4-36.2) SECONDS Sodium 137 (137-145) mmol/L Potassium 4.1 (3.4-5.1) mmol/L Chloride 105 (98-107) mmol/L Carbon Dioxide 22 (22-32) mmol/L BUN 15 (7-17) mg/dL Creatinine 0.42 L (0.52-1.04) mg/dL Estimated GFR > 60.0 (>60) mL/min BUN/Creatinine Ratio 35.7 H (6-22) Glucose 114 H (70-100) mg/dL Calcium 9.5 (8.4-10.2) mg/dL Magnesium 1.7 (1.6-2.3) mg/dL Total Bilirubin 0.3 (0.2-1.3) mg/dL AST 40 H (14-36) IU/L ALT 50 H (<35) IU/L Alkaline Phosphatase 101 (38-126) U/L Total Creatine Kinase 71 (30-135) U/L CK-MB (CK-2) TNP CK-MB (CK-2) Rel Index TNP Troponin I < 0.012 (0.01-0.034) ng/mL Total Protein 8.0 (6.3-8.2) g/dL Albumin 4.3 (3.5-5.0) g/dL Globulin 3.7 (1.7-4.1) g/dL Albumin/Globulin Ratio 1.2 (1.0-2.8) TSH (0.47-4.68) uIU/mL Serum , Qual (Negative) 03/25/21 03/25/21 Range/Units 13:30 13:30 WBC (4.5-11.0) X10^3/uL RBC (4.0-5.2) X10^6/uL Hgb (12.0-16.0) g/dL Hct (36-46) % MCV (80-100) fL MCH (26-34) PG MCHC (30-36) % RDW (11.6-14.8) % Plt Count (150-400) X10^3/uL Neut % (Auto) (50-75) % Lymph % (Auto) (25-40) % [place] % (Auto) (3-14) % Eos % (Auto) (2-4) % Baso % (Auto) (0-2) % Neut # (Auto) (7309-4741) /uL Lymph # (Auto) (5379-9133) /uL [place] # (Auto) (0-900) /uL Eos # (Auto) (0-450) /uL Baso # (Auto) (0-100) /uL PT (10.1-12.7) SECONDS INR (0.9-1.3) APTT (26.4-36.2) SECONDS Sodium (137-145) mmol/L Potassium (3.4-5.1) mmol/L Chloride (98-107) mmol/L Carbon Dioxide (22-32) mmol/L BUN (7-17) mg/dL Creatinine (0.52-1.04) mg/dL Estimated GFR (>60) mL/min BUN/Creatinine Ratio (6-22) Glucose (70-100) mg/dL Calcium (8.4-10.2) mg/dL Magnesium (1.6-2.3) mg/dL Total Bilirubin (0.2-1.3) mg/dL AST (14-36) IU/L ALT (<35) IU/L Alkaline Phosphatase (38-126) U/L Total Creatine Kinase (30-135) U/L CK-MB (CK-2) CK-MB (CK-2) Rel Index Troponin I (0.01-0.034) ng/mL Total Protein (6.3-8.2) g/dL Albumin (3.5-5.0) g/dL Globulin (1.7-4.1) g/dL Albumin/Globulin Ratio (1.0-2.8) TSH 2.81 (0.47-4.68) uIU/mL Serum , Qual Negative (Negative) Point of Care Testing Test Results Negative Urine Dip Bedside Urine Glucose Negative Bedside Urine Bilirubin - Negative Bedside Urine Ketone + 15 Urine Specific [place] 1.030 Bedside Urine Occult Blood + Bedside Urine pH 6 Bedside Urine Protein - Negative Bedside Urine Urobilinogen - Negative Bedside Urine Nitrite - Negative Bedside Urine Leukocytes - Negative Esterase MDM Narrative Medical decision making narrative: Patient with brief episode of palpitations that resolved prior to her arrival. She has very reassuring physical exam, EKG and lab work. Multiple diagnoses such as electrolyte abnormality versus SVT versus PVCs versus pulmonary embolism considered but thought unlikely given history, physical and evaluation with diagnostics. She has been given return precautions and questions answered to her apparent satisfaction Discharge Plan Departure Patient Disposition: Home Clinical Impression: Heart palpitations Instructions: DI for Arrhythmias Activity Restrictions/Additional Instructions: *You have been diagnosed with [palpitations, resolved] *What to do: *Continue to take medications as directed *Please avoid stimulants such as caffeine, nicotine, alcohol and try to get appropriate oral hydration and sleep. *Follow up with your primary care provider in 2-3 days, call for an appointment. Let them know you were seen in the Emergency Department and that we ask that you be seen in follow up *Return to ER if you should have any new, worsening or concerning symptoms Prescriptions: No Action cetirizine 10 MG tablet 10 mg PO QDAY Qty: 0 RF: 0 Referrals: Cecilia Galan DO [Primary Care Provider] -
[2021-03-25 14:30] VITALS: PULSE 72; RESP 20; O2SAT 96
[2021-03-25 15:00] VITALS: PULSE 77; RESP 27; O2SAT 96
== END 2021-03-25 15:14 | disposition home or self-care (01) ==
PROVIDERS: Emergency Medicine; Emergency Provider Emergency Medicine; PCP Family Medicine
DX: R00.2 Palpitations (principal)
CPT/HCPCS: 36415; 71045; 80053; 81003; 81025; 82550; 83735; 84443; 84484; 84703; 85025; 85610; 85730; 93005; 99283; 99284

== ENCOUNTER 2021-05-27 12:10 | Emergency (ER) | payer OTHER, SELFPAY ==
[2021-05-27] VITALS (20 sets, daily range): BP systolic 113–188; BP diastolic 59–86; PULSE 72–92; RESP 12–34; TEMP 36.6; O2SAT 95–100; BMI 57.8
--- NOTE | 2021-05-27 12:13 | DI.RAD.S_ITS ---
PROCEDURE: XR CHEST 1V INDICATIONS: chest pain TECHNIQUE: One view of the chest was acquired. COMPARISON: [facility], CR, XR CHEST 1V, 03/25/2021, 13:05. FINDINGS: Surgical changes and devices: None. Lungs and pleura: Lungs are clear. No pleural effusions or pneumothorax. Mediastinum: Mediastinal contours appear normal. Heart size is normal. Bones and chest wall: No suspicious bony lesions. Overlying soft tissues appear unremarkable. IMPRESSION: No evidence acute pulmonary process. Dictated by: Delfin Fierro M.D. on 05/27/2021 at 11:34 Approved by: Delfin Fierro M.D. on 05/27/2021 at 11:36
--- NOTE | 2021-05-27 12:34 | ED.CHESTPAIN ---
HPI - Chest Pain General Chief Complaint: Chest Pain Stated Complaint: TIGHTNESS IN CHEST. NUMBNESS IN FINGERS Time Seen by Provider: 05/27/21 12:20 Source: patient Mode of arrival: Ambulatory Limitations: no limitations History of Present Illness HPI narrative: 40-year-old morbidly obese wound presents with an hour of chest tightness that begin to develop into right neck pain and tingling in her left fingers so she comes in for further evaluation. She denies any nausea, diaphoresis, dyspnea or orthopnea. It started at rest and she has never had similar findings. She does not describe pain simply tightness. She has no history of asthma or other pulmonary concerns. She has not been vomiting, having abdominal pain, urinary symptoms or constipation or diarrhea. She notes that she is on a modified keto diet and has recently lost over 40 lb. Related Data Home Medications Medication Instructions Recorded Confirmed cetirizine 10 mg tablet 10 mg PO QDAY #0 02/28/17 05/27/21 Allergies Allergy/AdvReac Type Severity Reaction Status Date / Time erythromycin base Allergy Intermediate hives Verified 05/27/21 12:25 [ERYTHROMYCIN BASE] sumatriptan [From IMITREX] Allergy Intermediate vomiting Verified 05/27/21 12:25 Review of Systems Review of Systems Narrative: Remainder of complete review of systems is otherwise unremarkable except for that included in the HPI. Patient History Medical History (Updated 05/27/21 @ 16:16 by Maribell Diez MD) History of cold-induced urticaria Morbid obesity with body mass index (BMI) greater than or equal to 50 (02/28/17) Surgical History History of tonsillectomy Status post appendectomy Family History Father Diabetes mellitus Hypertension High cholesterol Grandmother Age: 84 History of breast cancer Mother Age: 63 Obese Social History Smoking Status: Former smoker Smoking Status: Former smoker alcohol intake frequency: a few times a month Substance Use Type: marijuana Exam Narrative Exam Narrative: General: Morbidly obese, appears uncomfortable with her chest tightness but calm fluent speech in describing her symptoms HEENT: Moist mucous membranes, normal sclera with reactive pupils, Neck: supple Respiratory: Lungs are clear to auscultation, no wheezing no rales no rhonchi. Full and symmetrical air movement Cardiac: Regular rate and rhythm no murmurs no bruits Abdomen: Soft, nontender, good bowel tones, no flank pain Skin: Warm and dry, no rashes Neurologic: Grossly neurologically intact with no obvious asymmetries or abnormalities Extremities: No trauma, well perfused Psych: Cooperative, appropriate insight and affect Initial Vital Signs Initial Vital Signs: Vital Signs Temperature 97.8 F 05/27/21 12:22 Pulse Rate 92 H 05/27/21 12:22 Respiratory Rate 14 05/27/21 12:22 Blood Pressure 141/62 H 05/27/21 12:22 Pulse Oximetry 100 05/27/21 12:22 Course Orders Ordered: ED Orders 05/27/21 12:13 XR chest 1V Stat EKG-12 Lead Stat 05/27/21 12:35 Complete Blood Count AUTO DIFF Stat Comprehensive Metabolic Panel Stat Lipase Stat Magnesium Stat Troponin & CK Cardiac Panel Stat 05/27/21 15:05 D Dimer Stat TSH [Thyroid Stimulating Hormone] Stat Troponin I Stat Discontinued Medications Aspirin (Aspirin 81 Mg Chew Tab) 324 mg PO NOW ONE Stop: 05/27/21 12:57 Last Admin: 05/27/21 13:09 Dose: 324 mg Documented by: KARTIK Nitroglycerin (Nitroglycerin 0.4 Mg Sl Tab) 0.4 mg SL [id number] PRN PRN Reason: Chest Pain Last Admin: 05/27/21 13:45 Dose: 0.4 mg Documented by: Admin: 05/27/21 13:20 Dose: 0.4 mg Documented by: Admin: 05/27/21 13:09 Dose: 0.4 mg Documented by: KARTIK Vital Signs Vital signs: Vital Signs - 8 hr 05/27/21 12:22 05/27/21 12:44 05/27/21 12:45 Temperature 97.8 F Pulse Rate 92 H 81 79 Respiratory Rate 14 14 19 Blood Pressure 141/62 H 173/80 H Pulse Oximetry 100 96 96 05/27/21 13:00 05/27/21 13:01 05/27/21 13:09 Temperature Pulse Rate 76 79 92 H Respiratory Rate 13 24 Blood Pressure 144/67 H 144/76 H Pulse Oximetry 97 97 05/27/21 13:10 05/27/21 13:19 05/27/21 13:20 Temperature Pulse Rate 91 H 79 89 Respiratory Rate 19 34 H Blood Pressure 145/71 H 188/86 H 188/86 H Pulse Oximetry 97 98 05/27/21 13:30 05/27/21 13:45 05/27/21 14:00 Temperature Pulse Rate 84 88 81 Respiratory Rate 15 16 Blood Pressure 167/73 H 167/73 H Pulse Oximetry 96 95 05/27/21 14:01 05/27/21 14:30 05/27/21 14:31 Temperature Pulse Rate 81 77 79 Respiratory Rate 17 12 16 Blood Pressure 153/66 H 134/63 Pulse Oximetry 97 98 98 05/27/21 15:00 05/27/21 15:01 05/27/21 15:30 Temperature Pulse Rate 79 76 79 Respiratory Rate 17 12 18 Blood Pressure 160/76 H Pulse Oximetry 97 97 97 05/27/21 16:00 05/27/21 16:11 Temperature Pulse Rate 82 72 Respiratory Rate 17 16 Blood Pressure 113/59 L Pulse Oximetry 97 99 MDM - Chest Pain Lab Data Result diagrams: 05/27/21 12:35 05/27/21 12:35 Labs: Lab Results 05/27/21 05/27/21 05/27/21 Range/Units 12:35 12:35 15:05 WBC 12.9 H (4.5-11.0) X10^3/uL RBC 4.65 (4.0-5.2) X10^6/uL Hgb 13.0 (12.0-16.0) g/dL Hct 39.3 (36-46) % MCV 84.6 (80-100) fL MCH 28.0 (26-34) PG MCHC 33.1 (30-36) % RDW 14.0 (11.6-14.8) % Plt Count 243 (150-400) X10^3/uL Neut % (Auto) 72.7 (50-75) % Lymph % (Auto) 20.5 L (25-40) % [place] % (Auto) 5.2 (3-14) % Eos % (Auto) 1.2 L (2-4) % Baso % (Auto) 0.4 (0-2) % Neut # (Auto) 9300 H (4344-8166) /uL Lymph # (Auto) 2600 (3328-4581) /uL [place] # (Auto) 700 (0-900) /uL Eos # (Auto) 100 (0-450) /uL Baso # (Auto) 100 (0-100) /uL D-Dimer (<230) ng/mL Sodium 135 L (137-145) mmol/L Potassium 5.0 (3.4-5.1) mmol/L Chloride 108 H (98-107) mmol/L Carbon Dioxide 19 L (22-32) mmol/L BUN 13 (7-17) mg/dL Creatinine 0.36 L (0.52-1.04) mg/dL Estimated GFR > 60.0 (>60) mL/min BUN/Creatinine Ratio 36.1 H (6-22) Glucose 97 (70-100) mg/dL Calcium 9.1 (8.4-10.2) mg/dL Magnesium 1.9 (1.6-2.3) mg/dL Total Bilirubin 0.7 (0.2-1.3) mg/dL AST 36 (14-36) IU/L ALT 35 H (<35) IU/L Alkaline Phosphatase 82 (38-126) U/L Total Creatine Kinase 133 (30-135) U/L CK-MB (CK-2) 0.55 (<2.37) ng/mL CK-MB (CK-2) Rel Index 0.4 L (1.5-5.0) % Troponin I < 0.012 < 0.012 (0.01-0.034) ng/mL Total Protein 7.6 (6.3-8.2) g/dL Albumin 4.0 (3.5-5.0) g/dL Globulin 3.6 (1.7-4.1) g/dL Albumin/Globulin Ratio 1.1 (1.0-2.8) Lipase 58 (23-300) U/L 05/27/21 Range/Units 15:05 WBC (4.5-11.0) X10^3/uL RBC (4.0-5.2) X10^6/uL Hgb (12.0-16.0) g/dL Hct (36-46) % MCV (80-100) fL MCH (26-34) PG MCHC (30-36) % RDW (11.6-14.8) % Plt Count (150-400) X10^3/uL Neut % (Auto) (50-75) % Lymph % (Auto) (25-40) % [place] % (Auto) (3-14) % Eos % (Auto) (2-4) % Baso % (Auto) (0-2) % Neut # (Auto) (2467-9640) /uL Lymph # (Auto) (2043-3937) /uL [place] # (Auto) (0-900) /uL Eos # (Auto) (0-450) /uL Baso # (Auto) (0-100) /uL D-Dimer 323 H (<230) ng/mL Sodium (137-145) mmol/L Potassium (3.4-5.1) mmol/L Chloride (98-107) mmol/L Carbon Dioxide (22-32) mmol/L BUN (7-17) mg/dL Creatinine (0.52-1.04) mg/dL Estimated GFR (>60) mL/min BUN/Creatinine Ratio (6-22) Glucose (70-100) mg/dL Calcium (8.4-10.2) mg/dL Magnesium (1.6-2.3) mg/dL Total Bilirubin (0.2-1.3) mg/dL AST (14-36) IU/L ALT (<35) IU/L Alkaline Phosphatase (38-126) U/L Total Creatine Kinase (30-135) U/L CK-MB (CK-2) (<2.37) ng/mL CK-MB (CK-2) Rel Index (1.5-5.0) % Troponin I (0.01-0.034) ng/mL Total Protein (6.3-8.2) g/dL Albumin (3.5-5.0) g/dL Globulin (1.7-4.1) g/dL Albumin/Globulin Ratio (1.0-2.8) Lipase (23-300) U/L ECG Data Interpretation: Sinus rhythm at a rate of 89 Normal axis, normal intervals No acute ischemic changes MDM Narrative Medical decision making narrative: 40-year-old woman with palpitations and chest tightness starting this morning. Initial evaluation is unremarkable with 1st and 2nd troponins being negative. Blood pressure is appropriate low with appropriate sized cuff. She had no response to nitroglycerin. At this point she is having no tightness or pain. She does not describe feeling anxious and does not describe herself as an anxious person. She notes that the sensation of palpitations have completely resolved as well. At this point I do not expect acute coronary syndrome, she does not have a pulmonary embolus, a pneumothorax, any signs of infection and thyroid studies are pending for her to review with her primary care physician. At this time she is safe for home discharge. Will ask her to keep track of her blood pressures and review these also with her primary care physician. Discharge Plan Departure Patient Disposition: Home Clinical Impression: Atypical chest pain Instructions: DI for Atypical Chest Pain Activity Restrictions/Additional Instructions: Thank you for coming in today Your workup did not suggest evidence of a heart attack or heart attack like syndrome. Your lungs were completely normal there is no evidence of collapsed lung or blood clots in your lungs. There is no evidence of infection. At this point I do not have a complete explanation for why you had the sensation of your heart pounding and the chest tightness but it has completely resolved. Please keep track of your blood pressures over the next couple of days and reviewed these findings with your primary care doctor. You will need to call her to schedule an appointment for next week. If symptoms return or you have new or worsening findings, please feel free to return to the emergency room. Prescriptions: No Action cetirizine 10 MG tablet 10 mg PO QDAY Qty: 0 RF: 0 Referrals: Cecilia Galan DO [Primary Care Provider] -
--- NOTE | 2021-05-27 12:40 | PC.NURSE ---
Patient reports tightness in chest, tingling in hands, and tightness in neck jaw with some feelings of anxiety and heart pounding. Happened while at rest.
[2021-05-27 13:02] LABS: Alanine Aminotransferase 35 IU/L (<35); Albumin Globulin Ratio 1.1 (1.0-2.8); Alkaline Phosphatase 82 U/L (38-126); Aspartate Aminotransferase 36 IU/L (14-36); BUN Creatinine Ratio 36.1 (6-22); Bilirubin Total 0.7 mg/dL (0.2-1.3); Blood Urea Nitrogen 13 mg/dL (7-17); Calcium 9.1 mg/dL (8.4-10.2); Carbon Dioxide 19 mmol/L (22-32); Chloride 108 mmol/L (98-107); Creatine Kinase 133 U/L (30-135); Estimated Glomerular Filt Rate > 60.0 mL/min (>60); Globulin 3.6 g/dL (1.7-4.1); Glucose 97 mg/dL (70-100); Lipase 58 U/L (23-300); Magnesium 1.9 mg/dL (1.6-2.3); Sodium 135 mmol/L (137-145); Total Protein 7.6 g/dL (6.3-8.2)
[2021-05-27 13:03] LABS: HEMOLYSIS 86 (0-50)
[2021-05-27] MEDS: ASPIRIN 81 MG CHEW TAB 324 MG PO (13:09)
[2021-05-27] MEDS: NITROGLYCERIN 0.4 MG SL TAB SL ×3 (13:09→13:45)
[2021-05-27 13:13] LABS: Troponin I < 0.012 ng/mL (0.01-0.034)
[2021-05-27 13:17] LABS: CKMB % Relative Index 0.4 % (1.5-5.0); Creatine Kinase MB 0.55 ng/mL (<2.37)
[2021-05-27 13:31] LABS: Add Manual Diff / Slide Review NO; Basophils Percent Auto 0.4 % (0-2); Eosinophils Percent Auto 1.2 % (2-4); Hematocrit 39.3 % (36-46); Lymphocytes Percent Auto 20.5 % (25-40); Mean Corpuscular HGB Conc 33.1 % (30-36); Mean Corpuscular Volume 84.6 fL (80-100); Monocytes Percent Auto 5.2 % (3-14); Neutrophils Percent Auto 72.7 % (50-75); Platelet Count 243 X10^3/uL (150-400); Red Blood Cell Count 4.65 X10^6/uL (4.0-5.2); White Blood Cell Count 12.9 X10^3/uL (4.5-11.0)
[2021-05-27 13:32] LABS: Basophils Absolute Auto 100 /uL (0-100); Eosinophils Absolute Auto 100 /uL (0-450); Lymphocytes Absolute Auto 2600 /uL (1100-4500); Monocytes Absolute Auto 700 /uL (0-900); Neutrophils Absolute Auto 9300 /uL (1500-7000)
--- NOTE | 2021-05-27 15:15 | PC.NURSE ---
Patient reports no change in pain with nitro. Reports more anxiety. After final nitro she reports less anxiety. BP appears to be increasing and decreasing with anxiety level.
[2021-05-27 15:40] LABS: D Dimer 323 ng/mL (<230); Troponin I < 0.012 ng/mL (0.01-0.034)
[2021-05-27 16:42] LABS: Thyroid Stimulating Hormone 2.44 uIU/mL (0.47-4.68)
== END 2021-05-27 16:30 | disposition home or self-care (01) ==
PROVIDERS: Emergency Provider Emergency Medicine; PCP Family Medicine
DX: R07.89 Other chest pain (principal); M54.2 Cervicalgia; R20.2 Paresthesia of skin
CPT/HCPCS: 36415; 71045; 80053; 82550; 82553; 83690; 83735; 84443; 84484; 85025; 85379; 93005; 99284

== ENCOUNTER → 2021-06-23 16:52 | Outpatient (CLI) | payer OTHER, SELFPAY ==
[2021-06-23 18:15] LABS: Add Manual Diff / Slide Review NO; Basophils Absolute Auto 0 /uL (0-100); Basophils Percent Auto 0.2 % (0-2); Eosinophils Absolute Auto 100 /uL (0-450); Hematocrit 38.8 % (36-46); Hemoglobin 13.1 g/dL (12.0-16.0); Lymphocytes Absolute Auto 1800 /uL (1100-4500); Lymphocytes Percent Auto 23.8 % (25-40); Mean Corpuscular HGB Conc 33.9 % (30-36); Mean Corpuscular Hemoglobin 28.9 PG (26-34); Mean Corpuscular Volume 85.3 fL (80-100); Monocytes Absolute Auto 500 /uL (0-900); Monocytes Percent Auto 6.1 % (3-14); Neutrophils Absolute Auto 5200 /uL (1500-7000); Neutrophils Percent Auto 68.9 % (50-75); Platelet Count 257 X10^3/uL (150-400); Red Blood Cell Count 4.55 X10^6/uL (4.0-5.2); Red Cell Distribution Width 13.9 % (11.6-14.8); White Blood Cell Count 7.5 X10^3/uL (4.5-11.0)
[2021-06-23 18:17] LABS: Cholesterol 140 mg/dL (140-199); HDL Cholesterol 56 mg/dL (40-60); LDL Cholesterol Calculated 68 mg/dL (<100); Triglycerides 78 mg/dL (35-150)
== END ==
PROVIDERS: PCP Family Medicine; Referring Provider Registered Nurse; Visit Provider Registered Nurse
DX: R89.9 Unspecified abnormal finding in specimens from other organs, systems and tissues (principal); E66.01 Morbid (severe) obesity due to excess calories; Z82.49 Family history of ischemic heart disease and other diseases of the circulatory system
CPT/HCPCS: 36415; 80061; 85025

== ENCOUNTER → 2022-03-30 14:37 | Outpatient (CLI) | payer OTHER, SELFPAY ==
[2022-03-30 15:45] LABS: Add Manual Diff / Slide Review NO; Basophils Absolute Auto 0 /uL (0-100); Basophils Percent Auto 0.4 % (0-2); Eosinophils Absolute Auto 200 /uL (0-450); Eosinophils Percent Auto 2.5 % (2-4); Lymphocytes Absolute Auto 1500 /uL (1100-4500); Lymphocytes Percent Auto 20.6 % (25-40); Mean Corpuscular HGB Conc 34.2 % (30-36); Monocytes Absolute Auto 500 /uL (0-900); Monocytes Percent Auto 6.3 % (3-14); Neutrophils Absolute Auto 5000 /uL (1500-7000); Neutrophils Percent Auto 70.2 % (50-75); Platelet Count 265 X10^3/uL (150-400); Red Cell Distribution Width 13.6 % (11.6-14.8); White Blood Cell Count 7.2 X10^3/uL (4.5-11.0)
[2022-03-30 16:00] LABS: Blood Urea Nitrogen 9 mg/dL (7-17); Calcium 8.9 mg/dL (8.4-10.2); Carbon Dioxide 26 mmol/L (22-32); Chloride 104 mmol/L (98-107); Cholesterol 182 mg/dL (140-199); Estimated Glomerular Filt Rate > 60 mL/min (>60); Glucose 113 mg/dL (70-100); HDL Cholesterol 51 mg/dL (40-60); HEMOLYSIS < 15 (0-50); LDL Cholesterol Calculated 104 mg/dL (<100); Magnesium 1.9 mg/dL (1.6-2.3); Potassium 4.1 mmol/L (3.4-5.1); Sodium 136 mmol/L (137-145); Triglycerides 134 mg/dL (35-150)
== END ==
PROVIDERS: PCP Family Medicine; Referring Provider Internal Medicine Cardiovascular Disease; Visit Provider Internal Medicine Cardiovascular Disease
DX: R00.2 Palpitations (principal); Z00.00 Encounter for general adult medical examination without abnormal findings
CPT/HCPCS: 36415; 80048; 80061; 83735; 84439; 84443; 85025

== ENCOUNTER → 2023-06-20 17:29 | Outpatient (CLI) | payer OTHER, SELFPAY | PROVIDERS: PCP Family Medicine; Visit Provider Nurse Practitioner Family | DX: N39.0 Urinary tract infection, site not specified (principal) | CPT/HCPCS: 87086 ==

== ENCOUNTER 2023-07-25 21:56 | Emergency (ER) | payer OTHER, SELFPAY ==
[2023-07-25 22:04] VITALS: BP 187/97; PULSE 98; RESP 18; TEMP 36.1; O2SAT 100; BMI 66.4
--- NOTE | 2023-07-25 22:08 | DI.RAD.S_ITS ---
PROCEDURE: XR CHEST 1V INDICATIONS: chest pain TECHNIQUE: One view of the chest was acquired. COMPARISON: [facility], CR, XR CHEST 1V, 05/27/2021, 12:25. [facility], CR, XR CHEST 1V, 03/25/2021, 13:05. FINDINGS: Surgical changes and devices: None. Lungs and pleura: Lungs are clear. No pleural effusions or pneumothorax. Mediastinum: Mediastinal contours appear normal. Heart size is normal. Bones and chest wall: No suspicious bony lesions. Overlying soft tissues appear unremarkable. IMPRESSION: Portable chest within normal limits for age. Dictated by: Mario Alberto Sheikh M.D. on 07/25/2023 at 23:06 Approved by: Mario Alberto Sheikh M.D. on 07/25/2023 at 23:07
[2023-07-25 22:34] LABS: Add Manual Diff / Slide Review NO; Basophils Absolute Auto 100 /uL (0-100); Basophils Percent Auto 0.6 % (0-2); Eosinophils Absolute Auto 200 /uL (0-450); Eosinophils Percent Auto 1.7 % (2-4); Hematocrit 38.9 % (36-46); Hemoglobin 13.1 g/dL (12.0-16.0); Lymphocytes Absolute Auto 2600 /uL (1100-4500); Lymphocytes Percent Auto 21.9 % (25-40); Mean Corpuscular HGB Conc 33.7 % (30-36); Mean Corpuscular Hemoglobin 27.5 PG (26-34); Mean Corpuscular Volume 81.4 fL (80-100); Monocytes Absolute Auto 700 /uL (0-900); Monocytes Percent Auto 5.7 % (3-14); Neutrophils Absolute Auto 8200 /uL (1500-7000); Neutrophils Percent Auto 70.1 % (50-75); Platelet Count 350 X10^3/uL (150-400); Red Blood Cell Count 4.78 X10^6/uL (4.0-5.2); Red Cell Distribution Width 14.1 % (11.6-14.8); White Blood Cell Count 11.7 X10^3/uL (4.5-11.0)
[2023-07-25 22:39] LABS: Prothrombin Time 11.5 SECONDS (10.1-12.7)
[2023-07-25 22:40] VITALS: BP 153/70; PULSE 82; RESP 20; O2SAT 99
[2023-07-25 22:42] LABS: PTT Partial Thromboplastin Tim 28 SECONDS (26-36)
[2023-07-25 22:45] LABS: Alanine Aminotransferase 40 IU/L (<35); Albumin 4.2 g/dL (3.5-5.0); Albumin Globulin Ratio 1.1 (1.0-2.8); Alkaline Phosphatase 78 U/L (38-126); Aspartate Aminotransferase 33 IU/L (14-36); BUN Creatinine Ratio 16.9 (6-22); Bilirubin Total 0.2 mg/dL (0.2-1.3); Blood Urea Nitrogen 10 mg/dL (7-17); Carbon Dioxide 25 mmol/L (22-32); Chloride 103 mmol/L (98-107); Creatine Kinase 57 U/L (30-135); Estimated Glomerular Filt Rate > 60 mL/min (>60); Globulin 3.8 g/dL (1.7-4.1); Glucose 152 mg/dL (70-100); HEMOLYSIS < 15 (0-50); Lipase 56 U/L (23-300); Magnesium 1.9 mg/dL (1.6-2.3); Potassium 3.6 mmol/L (3.4-5.1); Sodium 138 mmol/L (137-145)
[2023-07-25 22:56] LABS: Troponin I < 0.012 ng/mL (0.01-0.034)
[2023-07-25] MEDS: ASPIRIN 81 MG CHEW TAB 324 MG PO (22:56)
[2023-07-25 23:05] VITALS: BP 158/86; PULSE 83; RESP 14; O2SAT 98
--- NOTE | 2023-07-25 23:07 | PC.NURSE ---
DR Chen notified of her left shoulder pain,no new orders.
[2023-07-25 23:34] VITALS: BP 138/64; PULSE 83; RESP 16; O2SAT 97
[2023-07-26 00:04] VITALS: BP 143/70; PULSE 85; RESP 16; O2SAT 98
[2023-07-26 00:34] VITALS: BP 146/70; PULSE 84; RESP 18; O2SAT 99
--- NOTE | 2023-07-26 00:48 | ED_ITS ---
HPI - Chest Pain General Chief Complaint: Chest Pain Stated Complaint: Chest pain and rapid HR for 3 days Time Seen by Provider: 07/26/23 00:48 Source: patient Mode of arrival: Ambulatory Limitations: no limitations History of Present Illness HPI narrative: 42-year-old nonsmoker with history of familial cold induced urticaria who presents with complaint of some chest tightness and rapid heart rate. Patient states she has tightness has been about for 3 days it has been present persistent without any changes. Tonight she was out seeing Fifi gloria she did have an alcoholic drink. Right after she had seen Fifi gloria she said down and noticed her heart rate felt fast and she felt sort of nauseated. Patient states it has since resolved. She denies any shortness of breath. States no fevers or chills. No cold cough or congestive symptoms. Patient denies any vomiting but was nauseated. No issues with bowel movements no diarrhea constipation, no dysuria urgency or frequency. No recent swelling in her extremities. Patient states she is had a similar episode once in the past when she had a much more stressful job. She states she has not had any persistent issues since then after changing her work. She states Zyrtec as her only daily medication. She is had wrist surgery bilaterally, tonsils and adenoids, appendectomy. No prior cardiac interventions or surgeries. Allergic to erythromycin. No tobacco, had an alcoholic drink tonight and occasionally has ETOH. Uses edibles occasionally but no other recreational drugs. Patient notes no estrogen or contraceptives. No long distance travel. Related Data Home Medications Medication Instructions Recorded Confirmed cetirizine 10 mg tablet 10 mg PO QDAY ##0 02/28/17 03/29/22 Flonase continuous inhalation 06/16/21 03/29/22 Allergies Allergy/AdvReac Type Severity Reaction Status Date / Time erythromycin base Allergy Intermediate hives Verified 03/29/22 16:32 [ERYTHROMYCIN BASE] sumatriptan [From IMITREX] Allergy Intermediate vomiting Verified 03/29/22 16:32 Review of Systems Review of Systems ROS Unobtainable: All systems reviewed & are unremarkable except as noted in HPI and below Patient History Medical History Abnormal laboratory test result History of cold-induced urticaria Morbid obesity with body mass index (BMI) greater than or equal to 50 (02/28/17) Surgical History History of tonsillectomy Status post appendectomy Family History Father Diabetes mellitus Hypertension High cholesterol Grandmother Age: 86 History of breast cancer Mother Age: 65 Obese Social History Smoking Status: Former smoker Smoking Status: Former smoker alcohol intake frequency: a few times a month Substance Use Type: marijuana Exam Narrative Exam Narrative: GENERAL: Alert and oriented x three, obese female in mild distress. HEENT: Head normocephalic, atraumatic, EOMI, pupils reactive, face symmetric, moist mucous membranes NECK: Supple, full range of motion CARDIOVASCULAR: Regular rate and rhythm without murmurs, rubs or gallops. No JVD. No swelling bilateral lower extremities. RESPIRATORY: Breath sounds equal bilaterally, no wheezes rales or rhonchi. No tachypnea. No accessory muscle use. ABDOMEN: Soft, nontender. Normoactive bowel sounds all 4 quadrants. No guarding or rebound, rigidity, no mass : No CVA tenderness EXTREMITIES: Normal range of motion, no clubbing or edema. Neurovascularly intact NEUROLOGICAL: Cranial nerves II through XII grossly intact. Moving all extremities SKIN: Warm, dry, no petechiae, no rashes or lesions. Initial Vital Signs Initial Vital Signs: Vital Signs Temperature 97 F L 07/25/23 22:04 Pulse Rate 98 H 07/25/23 22:04 Respiratory Rate 18 07/25/23 22:04 Blood Pressure 187/97 H 07/25/23 22:04 Pulse Oximetry 100 07/25/23 22:04 Oxygen Delivery Method Room Air 07/25/23 22:04 Scores HEART Score Heart Score history: Slightly Suspicious Heart Score EKG: Normal Heart Score Age: < 45 years old Heart Score risk factors: No known risk factors Heart Score troponin: < or = to normal limit Heart Score Total: 0 PERC Score Age greater than or equal to 50 years: No Heart rate greater than or equal to 100 bpm: No Room Air O2 Sat less than 95%: No Unilateral leg swelling: No Recent trauma or surgery: No Hemoptysis: No Prior PE or DVT: No Hormone Use: No Total PERC Score: 0 Course Orders Ordered: ED Orders 07/25/23 22:08 XR chest 1V Stat EKG-12 Lead Stat 07/25/23 22:24 Complete Blood Count AUTO DIFF Stat Comprehensive Metabolic Panel Stat Lipase Stat Magnesium Stat PTT Partial Thromboplastin Nelson Stat Prothrombin Time INR Stat Troponin & CK Cardiac Panel Stat Discontinued Medications Aspirin (Aspirin 81 Mg Chew Tab) 324 mg PO NOW ONE Stop: 07/25/23 22:08 Last Admin: 07/25/23 22:56 Dose: 324 mg Documented By: MAXIMILIAN Vital Signs Vital signs: Vital Signs - 8 hr 07/25/23 22:40 07/25/23 23:05 07/25/23 23:34 Pulse Rate 82 83 83 Respiratory Rate 20 14 16 Blood Pressure 153/70 H 158/86 H 138/64 Pulse Oximetry 99 98 97 Oxygen Delivery Method Room Air Room Air Room Air 07/26/23 00:04 07/26/23 00:34 07/26/23 02:48 Pulse Rate 85 84 76 Respiratory Rate 16 18 18 Blood Pressure 143/70 H 146/70 H 134/78 Pulse Oximetry 98 99 97 Oxygen Delivery Method Room Air Room Air MDM - Chest Pain Lab Data 07/25/23 22:24 07/25/23 22:24 Labs: Lab Results 07/25/23 07/25/23 07/25/23 Range/Units 22:24 22:24 22:24 WBC 11.7 H (4.5-11.0) X10^3/uL RBC 4.78 (4.0-5.2) X10^6/uL Hgb 13.1 (12.0-16.0) g/dL Hct 38.9 (36-46) % MCV 81.4 (80-100) fL MCH 27.5 (26-34) PG MCHC 33.7 (30-36) % RDW 14.1 (11.6-14.8) % Plt Count 350 (150-400) X10^3/uL Neut % (Auto) 70.1 (50-75) % Lymph % (Auto) 21.9 L (25-40) % Gage % (Auto) 5.7 (3-14) % Eos % (Auto) 1.7 L (2-4) % Baso % (Auto) 0.6 (0-2) % Neut # (Auto) 8200 H (4800-5763) /uL Lymph # (Auto) 2600 (6806-1807) /uL Gage # (Auto) 700 (0-900) /uL Eos # (Auto) 200 (0-450) /uL Baso # (Auto) 100 (0-100) /uL PT 11.5 (10.1-12.7) SECONDS INR 1.0 (0.9-1.3) APTT 28 (26-36) SECONDS Sodium 138 (137-145) mmol/L Potassium 3.6 (3.4-5.1) mmol/L Chloride 103 (98-107) mmol/L Carbon Dioxide 25 (22-32) mmol/L BUN 10 (7-17) mg/dL Creatinine 0.59 (0.52-1.04) mg/dL Estimated GFR > 60 (>60) mL/min BUN/Creatinine Ratio 16.9 (6-22) Glucose 152 H (70-100) mg/dL Calcium 9.0 (8.4-10.2) mg/dL Magnesium 1.9 (1.6-2.3) mg/dL Total Bilirubin 0.2 (0.2-1.3) mg/dL AST 33 (14-36) IU/L ALT 40 H (<35) IU/L Alkaline Phosphatase 78 (38-126) U/L Total Creatine Kinase 57 (30-135) U/L Troponin I < 0.012 (0.01-0.034) ng/mL Total Protein 8.0 (6.3-8.2) g/dL Albumin 4.2 (3.5-5.0) g/dL Globulin 3.8 (1.7-4.1) g/dL Albumin/Globulin Ratio 1.1 (1.0-2.8) Lipase 56 (23-300) U/L Imaging Data Chest x-ray: Radiologist's Impression: Close Chest X-Ray (Signed) Mario Alberto Sheikh - 07/25/23 Chest X-Ray (Signed) Delfin Fierro - 05/27/21 Chest X-Ray (Signed) Marcial Karimi - 03/25/21 Head/Neck CTA (Signed) Steff Madrid - 02/24/[address] (Signed) Yinka Ugarte - 02/24/21 DI Result 01/07/20 Launch?Image [address] [address] XRay Report Signed Patient: Tram Carter MR#: [id number] : 1980 Acct:[id number] Age/Sex: 42 / F Date of Service: 07/25/23 Loc: ED Accession Number: [id number] ?? Procedure: XR chest 1V Ordering Provider: Judie Chen D.O. PROCEDURE:? XR CHEST 1V ? INDICATIONS:? chest pain ? TECHNIQUE:? One view of the chest was acquired.? ? COMPARISON:? [facility], CR, XR CHEST 1V, 05/27/2021, 12:25.? [facility], CR, XR CHEST 1V, 03/25/2021, 13:05. ? FINDINGS:? ? Surgical changes and devices:? None.? ? Lungs and pleura:? Lungs are clear.? No pleural effusions or pneumothorax.? ? Mediastinum:? Mediastinal contours appear normal.? Heart size is normal.? ? Bones and chest wall:? No suspicious bony lesions.? Overlying soft tissues appear unremarkable.? ? ? IMPRESSION:? Portable chest within normal limits for age. ? ? Dictated by: Mario Alberto Sheikh M.D. on 07/25/2023 at 23:06 ? ? Approved by: Mario Alberto Sheikh M.D. on 07/25/2023 at 23:07?? ECG Data Attestation: I personally reviewed and interpreted this ECG as follows: Prior ECG tracings: available for review Interpretation: Sinus rhythm rate 88 TN 156 QRS 82 and QTC 435. No acute ST elevation depression noted. Patient has prior from 05/27/2021 which appears similar. MDM Narrative Medical decision making narrative: 42-year-old female with history of obesity and familial cold induced urticaria on Zyrtec only. Patient has had some chest tightness for the past 3 days presents this evening because while seeing Fifi okay had developed elevated heart rate took some time to come down nausea and additional discomfort. Patient states she feels back to normal. She states she did have a prior episode in the past. Workup including CBC, coags, CMP, LFTs troponin are negative, patient has had 3 days of chest discomfort with negative troponin so was not repeated. Chest x-ray shows no acute change. Patient had heart rate in the 90s never any higher, no hypoxia with no acute EKG changes. Patient is felt appropriate for discharge follow up with primary care. Discussed return precautions. Discharge Plan Departure Patient Disposition: Home Clinical Impression: Atypical chest pain Instructions: DI for Atypical Chest Pain Activity Restrictions/Additional Instructions: Follow-up with your physician if your symptoms are persisting. Please continue your home medications as prescribed. Please return if new or worsening symptoms, new chest pain, shortness of breath, elevated or other changes to heart rate, swelling of extremities, passing out, vomiting or other new or concerning changing. Prescriptions: No Action cetirizine 10 MG tablet 10 mg PO QDAY Qty: 0 Flonase continuous inhalation Referrals: Annmarie Hogan MD [Primary Care Provider] - Stand Alone Forms: Patient Portal/API
[2023-07-26 02:48] VITALS: BP 134/78; PULSE 76; RESP 18; O2SAT 97
== END 2023-07-26 02:48 | disposition home or self-care (01) ==
PROVIDERS: Emergency Provider Emergency Medicine; PCP Family Medicine
DX: R07.89 Other chest pain (principal); R00.2 Palpitations
CPT/HCPCS: 36415; 71045; 80053; 82550; 83690; 83735; 84484; 85025; 85610; 85730; 93005; 99284

== ENCOUNTER → 2023-09-29 15:42 | Outpatient (CLI) | payer OTHER, SELFPAY ==
[2023-09-29 16:28] LABS: Influenza A - CEPHEID Flu A NEGATIVE (NEGATIVE); Influenza B - CEPHEID Flu B NEGATIVE (NEGATIVE); Respiratory Syncytial Virus Negative (Negative)
[2023-09-29 16:33] LABS: COVID-19 CEPHEID 4-PLEX PCR POSITIVE (Negative)
== END ==
PROVIDERS: PCP Family Medicine; Visit Provider Physician Assistant
DX: R05.1 Acute cough (principal)
CPT/HCPCS: 0241U

== ENCOUNTER 2023-09-29 15:48 | Emergency (ER) | payer OTHER, SELFPAY ==
[2023-09-29 15:53] VITALS: BP 161/95; PULSE 119; RESP 19; TEMP 38.6; O2SAT 97; BMI 65.9
[2023-09-29 16:18] VITALS: BP 138/75; PULSE 109; RESP 16; O2SAT 96
[2023-09-29 16:30] VITALS: BP 143/80; PULSE 103; RESP 15; O2SAT 96
--- NOTE | 2023-09-29 16:41 | ED_ITS ---
HPI - Fever <Simon Huggins PA-C - Last Filed: 09/29/23 16:48> General Chief Complaint: Fever Stated Complaint: Elevated HR, Ill Fever 101.5F, SOB, Headache Time Seen by Provider: 09/29/23 16:13 Source: patient and family Mode of arrival: Family Vehicle History of Present Illness HPI Narrative: This is a 43-year-old female presents to the emergency department due to a cough onset last night as well as elevated heart rate at about noon today. She states that her heart rate was 100-1 20s. She denies any chest pain, reports very very mild shortness of breath. Denies any palpitations, abdominal pain, or any other concerning signs or symptoms. Related Data Home Medications Medication Instructions Recorded Confirmed cetirizine 10 mg tablet 10 mg PO QDAY ##0 02/28/17 09/29/23 Flonase continuous inhalation 06/16/21 09/29/23 Allergies Allergy/AdvReac Type Severity Reaction Status Date / Time erythromycin base Allergy Intermediate hives Verified 09/29/23 15:16 [ERYTHROMYCIN BASE] sumatriptan [From IMITREX] Allergy Intermediate vomiting Verified 09/29/23 15:16 Review of Systems <Simon Huggins PA-C - Last Filed: 09/29/23 16:48> Review of Systems Narrative: GENERAL: Denies chills, fatigue, malaise, fever, sweats. HEENT: Denies sinus pain, ear pain, sore throat, difficulty swallowing, dizziness. RESPIRATORY: Reports mild shortness of breath cough, denies wheezing, hemoptysis, sputum. CARDIOVASCULAR: Denies chest pain, palpitations, orthopnea, edema, GASTROINTESTINAL: Denies nausea, vomiting, abdominal pain, diarrhea, constipation, melena. : Denies dysuria, frequency, incontinence, hematuria, urinary retention. MUSCULOSKELETAL: denies weakness, joint pain, or bony pain SKIN: Denies rash, skin lesions, or other NEUROLOGIC: Denies weakness, headache, numbness, change in speech, confusion, seizures, incoordination. PSYCHIATRIC: No concerning psychosocial issues. 12 point review of systems is negative except for those stated above Patient History <Simon Huggins PA-C - Last Filed: 09/29/23 16:48> Medical History Abnormal laboratory test result History of cold-induced urticaria Morbid obesity with body mass index (BMI) greater than or equal to 50 (02/28/17) Surgical History History of tonsillectomy Status post appendectomy Family History Father Diabetes mellitus Hypertension High cholesterol Grandmother Age: 86 History of breast cancer Mother Age: 65 Obese Social History Smoking Status: Former smoker Smoking Status: Former smoker alcohol intake frequency: a few times a month Substance Use Type: marijuana Exam <Simon Huggins PA-C - Last Filed: 09/29/23 16:48> Narrative Exam Narrative: GENERAL: Well-developed patient, in mild distress. HEAD: Atraumatic. Normocephalic. EYES: Pupils equal round and reactive. Extraocular motions intact. No scleral icterus. No injection or drainage. ENT: Nose without bleeding, purulent drainage. Throat without erythema, tonsillar hypertrophy or exudate. Airway patent. NECK: Trachea midline. Non tender CARDIOVASCULAR: Tachycardic with a regular rhythm without murmurs, gallops, or rubs. RESPIRATORY: Clear to auscultation. Breath sounds equal bilaterally. No wheezes, rales, or rhonchi. GASTROINTESTINAL: Abdomen soft, non-tender, nondistended. EXTREMITIES: No edema or joint tenderness. BACK: Nontender without deformity or crepitance. No flank tenderness. NEURO: AOx3. SKIN: No rash or erythema of visible areas Initial Vital Signs Initial Vital Signs: Vital Signs Temperature 101.4 F H 09/29/23 15:53 Pulse Rate 119 H 09/29/23 15:53 Respiratory Rate 19 09/29/23 15:53 Blood Pressure 161/95 H 09/29/23 15:53 Pulse Oximetry 97 09/29/23 15:53 Oxygen Delivery Method Room Air 09/29/23 15:53 <Judie Chen DO - Last Filed: 09/30/23 08:04> Initial Vital Signs Initial Vital Signs: Vital Signs Temperature 101.4 F H 09/29/23 15:53 Pulse Rate 119 H 09/29/23 15:53 Respiratory Rate 19 09/29/23 15:53 Blood Pressure 161/95 H 09/29/23 15:53 Pulse Oximetry 97 09/29/23 15:53 Oxygen Delivery Method Room Air 09/29/23 15:53 Course <Simon Huggins PA-C - Last Filed: 09/29/23 16:48> Orders Ordered: Discontinued Medications Acetaminophen (Acetaminophen 325 Mg Tablet) 650 mg PO NOW ONE Stop: 09/29/23 16:39 Last Admin: 09/29/23 16:47 Dose: Not Given Documented By: BS Vital Signs Vital signs: Vital Signs - 8 hr 09/29/23 15:53 09/29/23 16:18 09/29/23 16:18 Temperature 101.4 F H Pulse Rate 119 H 109 H Respiratory Rate 19 16 Blood Pressure 161/95 H 138/75 Pulse Oximetry 97 96 Oxygen Delivery Method Room Air 09/29/23 16:30 09/29/23 16:30 09/29/23 16:45 Temperature Pulse Rate 103 H Respiratory Rate 15 Blood Pressure 143/80 H 143/72 H Pulse Oximetry 96 Oxygen Delivery Method 09/29/23 16:45 09/29/23 17:00 Temperature Pulse Rate 102 H Respiratory Rate 18 Blood Pressure Pulse Oximetry 96 99 Oxygen Delivery Method Room Air <Judie Chen DO - Last Filed: 09/30/23 08:04> Orders Ordered: Discontinued Medications Acetaminophen (Acetaminophen 325 Mg Tablet) 650 mg PO NOW ONE Stop: 09/29/23 16:39 Last Admin: 09/29/23 16:47 Dose: Not Given Documented By: BS Vital Signs Vital signs: Vital Signs - 8 hr 09/29/23 15:53 09/29/23 16:18 09/29/23 16:18 Temperature 101.4 F H Pulse Rate 119 H 109 H Respiratory Rate 19 16 Blood Pressure 161/95 H 138/75 Pulse Oximetry 97 96 Oxygen Delivery Method Room Air 09/29/23 16:30 09/29/23 16:30 09/29/23 16:45 Temperature Pulse Rate 103 H Respiratory Rate 15 Blood Pressure 143/80 H 143/72 H Pulse Oximetry 96 Oxygen Delivery Method 09/29/23 16:45 09/29/23 17:00 Temperature Pulse Rate 102 H Respiratory Rate 18 Blood Pressure Pulse Oximetry 96 99 Oxygen Delivery Method Room Air MDM - Fever <Simon Huggins PA-C - Last Filed: 09/29/23 16:48> MDM Narrative Medical decision making narrative: MDM * differential diagnosis includes but not limited to sepsis, COVID, flu, RSV, pneumonia * Prior records reviewed: Patient was seen here approximately 2 months ago for atypical chest pain. No previous cardiac interventions or surgery. * My lab interpretation: Testing came back positive for COVID * My imgaing interpretation: None obtained * Clinical Decision Rules/Scores evaluated: None * Independent discussions with: None ED Course: This is a 43-year-old female presents to the emergency department due to tachycardia as well as a cough. Patient technically meets sepsis criteria with elevated heart rate, fever, and possible source of infection. Initial testing came back positive for COVID. Suspect vitals are secondary to the COVID infection. On exam she appeared very well. She denied any significant chest pain or any significant shortness of breath workup. Discussed nature of self-limiting disease and recommended symptomatic management and care. Patient was offered Tylenol to help with the fevers but she declined and states that she has a home. Shared Decision Making: Discussed plan with the patient who is comfortable with the plan. Social Considerations: None Disposition: Discharged home Discharge Plan Departure Patient Disposition: Home Clinical Impression: COVID Activity Restrictions/Additional Instructions: Thank you for coming to the [facility] Emergency Department today. As we discussed your tests came back positive for COVID. I believe this is the cause of your elevated heart rate as well as fever. I recommend Tylenol as needed at home fevers. This is a self-limiting disease that should improve over the next week or so. Please get plenty of rest, fluids, DayQuil, NyQuil, and over the [id number] therapies to help with the symptoms. I hope you feel better soon. Please follow up with your primary care provider within a week if your symptoms continue. If you do not have a primary care provider please contact the [facility] Resource line at [phone]. They will ask some questions about your medical history and help you get set up with a provider in the community. Prescriptions: No Action cetirizine 10 MG tablet 10 mg PO QDAY Qty: 0 Flonase continuous inhalation Referrals: Annmarie Hogan MD [Primary Care Provider] - Stand Alone Forms: Patient Portal/API ED Sign-out <Judie Chen DO - Last Filed: 09/30/23 08:04> Cosign ED Attending Brain Attestation: I was immediately available in the department for consultation. Documentation has been reviewed. Case was discussed. Patient did not want wish for additional workup.
[2023-09-29 16:45] VITALS: BP 143/72; PULSE 102; RESP 18; O2SAT 96
[2023-09-29 17:00] VITALS: O2SAT 99
== END 2023-09-29 17:04 | disposition home or self-care (01) ==
PROVIDERS: Emergency Provider Physician Assistant Medical; PCP Family Medicine
DX: U07.1 COVID-19 (principal); R05.1 Acute cough
CPT/HCPCS: 0241U; 36415; 99283

== ENCOUNTER → 2023-12-23 10:36 | Outpatient (CLI) | payer OTHER, SELFPAY ==
[2023-12-23 10:59] LABS: Add Manual Diff / Slide Review NO; Basophils Absolute Auto 0 /uL (0-100); Basophils Percent Auto 0.6 % (0-2); Eosinophils Absolute Auto 100 /uL (0-450); Eosinophils Percent Auto 2.2 % (2-4); Hematocrit 39.3 % (36-46); Hemoglobin 13.4 g/dL (12.0-16.0); Lymphocytes Absolute Auto 1800 /uL (1100-4500); Lymphocytes Percent Auto 28.3 % (25-40); Mean Corpuscular Hemoglobin 28.2 PG (26-34); Monocytes Absolute Auto 300 /uL (0-900); Monocytes Percent Auto 5.1 % (3-14); Neutrophils Absolute Auto 4100 /uL (1500-7000); Neutrophils Percent Auto 63.8 % (50-75); Platelet Count 306 X10^3/uL (150-400); Red Blood Cell Count 4.73 X10^6/uL (4.0-5.2); Red Cell Distribution Width 14.7 % (11.6-14.8); White Blood Cell Count 6.5 X10^3/uL (4.5-11.0)
[2023-12-23 11:16] LABS: Hemoglobin A1C% w Est Avg Glu 5.5 % (4.0-6.0)
[2023-12-23 11:35] LABS: Alanine Aminotransferase 44 IU/L (<35); Albumin 3.7 g/dL (3.5-5.0); Albumin Globulin Ratio 1.1 (1.0-2.8); Alkaline Phosphatase 83 U/L (38-126); Aspartate Aminotransferase 41 IU/L (14-36); BUN Creatinine Ratio 16.3 (6-22); Bilirubin Total 0.5 mg/dL (0.2-1.3); Blood Urea Nitrogen 7 mg/dL (7-17); Calcium 9.3 mg/dL (8.4-10.2); Carbon Dioxide 22 mmol/L (22-32); Chloride 106 mmol/L (98-107); Cholesterol 103 mg/dL (140-199); Estimated Glomerular Filt Rate > 60 mL/min (>60); Globulin 3.3 g/dL (1.7-4.1); Glucose 95 mg/dL (70-100); HDL Cholesterol 36 mg/dL (40-60); HEMOLYSIS 30 (0-50); LDL Cholesterol Calculated 47 mg/dL (<100); Potassium 4.2 mmol/L (3.4-5.1); Sodium 136 mmol/L (137-145); Triglycerides 98 mg/dL (35-150)
[2023-12-23 11:52] LABS: Free T3, Triiodothyronine Free 2.85 pg/mL (2.77-5.27)
[2023-12-23 12:06] LABS: Thyroid Stimulating Hormone 1.79 uIU/mL (0.47-4.68)
[2023-12-23 16:51] LABS: HIV 1 & 2 Ab/Ag 4th Gen Combo NEGATIVE (NEGATIVE); Hep C Virus Ab w/Reflex Quant NEGATIVE s/c (NEGATIVE)
== END ==
PROVIDERS: PCP Nurse Practitioner; Referring Provider Nurse Practitioner; Visit Provider Nurse Practitioner
DX: Z01.812 Encounter for preprocedural laboratory examination (principal); Z11.4 Encounter for screening for human immunodeficiency virus [HIV]; Z11.59 Encounter for screening for other viral diseases
CPT/HCPCS: 36415; 80053; 80061; 83036; 84439; 84443; 84481; 85025; 86803; 87389

== ENCOUNTER → 2024-01-18 08:00 | Outpatient (CLI) | payer OTHER, SELFPAY ==
--- NOTE | 2024-01-18 08:01 | DI.MG.S_ITS ---
BILATERAL DIGITAL SCREENING MAMMOGRAM 3D/2D WITH CAD: 01/18/2024 CLINICAL: Routine screening. Family history of breast cancer. Comparison is made to exams dated: 04/11/2017 mammogram and 04/11/2017 mammogram - [facility]. Both breasts are almost entirely fatty (category a/<25% glandular tissue). Current study was also evaluated with a Computer Aided Detection (CAD) system. No significant masses, calcifications, or other findings are seen in either breast. There has been no significant interval change. IMPRESSION: NEGATIVE There is no mammographic evidence of malignancy. A 1 year screening mammogram is recommended. Based on the Tyrer Cuzick model (a risk assessment model) the patient's lifetime risk is 13.2% and her 10 year risk is 1.8%. According to the ACR, ACS, and NCCN guidelines, an annual breast MRI exam along with mammogram is recommended if the patient's lifetime risk is 20% or greater. This exam was interpreted at Station ID: [id number]. NOTE: For mammograms, a report in lay terms will be sent to the patient. Approximately 15% of breast malignancies will not be visualized mammographically. In the management of a palpable breast mass, a negative mammogram must not discourage biopsy of a clinically suspicious lesion. Electronically Signed By: Patrica Valdez M.D., PH.D gabe/presley:01/20/2024 09:13:02 letter sent: Normal Exam ACR BI-RADS Category 1: Negative [id number]
== END ==
PROVIDERS: PCP Nurse Practitioner; Referring Provider Nurse Practitioner; Visit Provider Nurse Practitioner
DX: Z12.31 Encounter for screening mammogram for malignant neoplasm of breast (principal); Z80.3 Family history of malignant neoplasm of breast
CPT/HCPCS: 77063; 77067